=== PATIENT | male | born 1970 | race Hispanic/Latino ===

== ENCOUNTER 2018-07-10 04:52 | Emergency (ER) | payer MEDICAID ==
[2018-07-10] MEDS ORDERED: Albuterol-Ipratrop 3 mg / 0.5 (3 ml) UD INH STA (05:32)
[2018-07-10] MEDS ORDERED: Albuterol-Ipratrop 3 mg / 0.5 (3 ml) UD ONE ×2 (05:46→05:58)
[2018-07-10 05:59] LABS: BASO % 0.7 % (0.0-2.0); EOS # 0.1 K/uL (0.0-0.7); EOS % 1.2 % (0.0-4.0); HEMOGLOBIN 13.6 g/dL (12.0-18.0); LYMPH # 1.6 K/uL (1.0-4.3); LYMPH % 25.3 % (20.0-40.0); MEAN CELL VOLUME 85.4 fl (80.0-94.0); MEAN CORPUSCULAR HEMOGLOBIN 29.5 pg (27.0-31.0); MEAN CORPUSCULAR HGB CONC 34.5 g/dL (33.0-37.0); MEAN PLATELET VOLUME 7.7 fl (7.2-11.7); MONO # 0.4 K/uL (0.0-0.8); MONO % 6.4 % (0.0-10.0); NEUT # 4.3 K/uL (1.8-7.0); NEUT % 66.4 % (50.0-75.0); RBC 4.61 Mil/uL (4.40-5.90); RED CELL DISTRIBUTION WIDTH 13.5 % (11.5-14.5); WHITE BLOOD COUNT 6.5 K/uL (4.8-10.8)
[2018-07-10 06:03] VITALS: RESP 18; O2SAT 98
[2018-07-10 06:04] LABS: INR 0.9; PROTHROMBIN TIME 10.5 Seconds (9.8-13.1)
[2018-07-10 06:14] LABS: ALB/GLOB RATIO 1.3 (1.0-2.1); ALBUMIN 4.3 g/dL (3.5-5.0); ALT/SGPT 40 U/L (21-72); AST/SGOT 32 U/L (17-59); BLOOD UREA NITROGEN 19 mg/dl (9-20); CALCIUM 10.1 mg/dL (8.4-10.2); GFR NON-AFRICAN AMERICAN > 60; PARTIAL THROMBOPLASTIN TIME 35.1 Seconds (25.6-37.1)
--- NOTE | 2018-07-10 06:15 | ED PDOC ---
HPI: Back Time Seen by Provider: 07/10/18 05:14 Chief Complaint (Nursing): Anxiety Chief Complaint (Provider): Shortness of Breath History Per: Patient History/Exam Limitations: no limitations Additional Complaint(s): 47 y/o male with history of chronic back pain, presents to the ED complaining of shortness of breath prior to arrival. Patient reports he was driving and felt short of breath. He states that symptoms were similar to an episode many years ago and at that time he was diagnosed with anxiety. Patient notes that there is no real reason for him to feel particularly anxious. Patient works as a long distance truck driver flatbed and smokes a pack of cigarettes daily. Denies any chest pain. Past Medical History Reviewed: Historical Data, Nursing Documentation, Vital Signs Vital Signs: Last Vital Signs Temp 98.2 F 07/10/18 06:02 Pulse 94 H 07/10/18 06:02 Resp 18 07/10/18 06:02 BP 126/71 07/10/18 06:02 Pulse Ox 98 07/10/18 06:02 - Medical History PMH: Chronic Pain (Back pain) - Surgical History Surgical History: No Surg Hx - Family History Family History: States: Unknown Family Hx - Social History Current smoker - smoking cessation education provided: Yes SMOKER/PACKS PER DAY:: 1 - Allergies Allergies/Adverse Reactions: Allergies Allergy/AdvReac Type Severity Reaction Status Date / Time Penicillins Allergy RASH Verified 07/10/18 05:07 tramadol Allergy RASH Verified 07/10/18 05:07 Review of Systems ROS Statement: Except As Marked, All Systems Reviewed And Found Negative Cardiovascular: Negative for: Chest Pain Respiratory: Positive for: Shortness of Breath Psych: Positive for: Anxiety Physical Exam - Reviewed Nursing Documentation Reviewed: Yes Vital Signs Reviewed: Yes - Physical Exam Appears: Positive for: Well, Non-toxic, No Acute Distress Head Exam: Positive for: ATRAUMATIC, NORMAL INSPECTION, NORMOCEPHALIC Skin: Positive for: Normal Color, Warm, DRY Eye Exam: Positive for: EOMI, Normal appearance, PERRL ENT: Positive for: Normal ENT Inspection Neck: Positive for: Normal, Painless ROM Cardiovascular/Chest: Positive for: Regular Rate, Rhythm, Tachycardia. Negative for: Murmur Respiratory: Positive for: Normal Breath Sounds. Negative for: Respiratory Distress Gastrointestinal/Abdominal: Positive for: Normal Exam, Soft. Negative for: Tenderness Back: Positive for: Normal Inspection Extremity: Positive for: Normal ROM. Negative for: Pedal Edema, Deformity Neurologic/Psych: Positive for: Alert, Oriented. Negative for: Motor/Sensory Deficits - Laboratory Results Result Diagrams: 07/10/18 05:57 07/10/18 05:57 Lab Results: PT 10.5 Seconds (9.8-13.1) 07/10/18 05:57 INR 0.9 07/10/18 05:57 - ECG O2 Sat by Pulse Oximetry: 98 (RA) Pulse Ox Interpretation: Normal Medical Decision Making Medical Decision Making: Time: 05:31 Initial Impression: 47 y/o with shorntess of breath Initial Plan: * Labs * CT Chest Angio * Duoneb 07:00 Patient care endorsed to Dr. Weber pending CT, labs, and reevaluation. ----- Scribe Attestation: Documented by Neftaly Pavon acting as a scribe for Dread Nichols MD. Provider Scribe Attestation: All medical record entries made by the Scribe were at my direction and personally dictated by me. I have reviewed the chart and agree that the record accurately reflects my personal performance of the history, physical exam, medical decision making, and the department course for this patient. I have also personally directed, reviewed, and agree with the discharge instructions and disposition. Disposition - Clinical Impression Clinical Impression: Dyspnea - Disposition Disposition: Transfer of Care Disposition Time: 07:00 Condition: FAIR Forms: [employer] ([place]) Patient Signed Over To: Abel Weber
[2018-07-10] MEDS ORDERED: Sodium Chloride 0.9% 50 ML IV ONE (06:27)
[2018-07-10] MEDS ORDERED: Iodixanol 320 MG/ML 100 ML BOTTLE IV ONE (06:27)
[2018-07-10 07:27] VITALS: BP 141/65
[2018-07-10 07:28] VITALS: PULSE 92; TEMP 98
--- NOTE | 2018-07-10 07:52 | ED PDOC ---
- Laboratory Results Result Diagrams: 07/10/18 05:57 07/10/18 05:57 Lab Results: PT 10.5 Seconds (9.8-13.1) 07/10/18 05:57 INR 0.9 07/10/18 05:57 APTT 35.1 Seconds (25.6-37.1) 07/10/18 05:57 Troponin I < 0.0120 ng/mL (0.00-0.120) 07/10/18 05:57 Total Bilirubin 0.3 mg/dl (0.2-1.3) 07/10/18 05:57 AST 32 U/L (17-59) 07/10/18 05:57 ALT 40 U/L (21-72) 07/10/18 05:57 Alkaline Phosphatase 72 U/L (38-126) 07/10/18 05:57 Total Protein 7.6 G/DL (6.3-8.2) 07/10/18 05:57 Albumin 4.3 g/dL (3.5-5.0) 07/10/18 05:57 Globulin 3.3 gm/dL (2.2-3.9) 07/10/18 05:57 Albumin/Globulin Ratio 1.3 (1.0-2.1) 07/10/18 05:57 - ECG O2 Sat by Pulse Oximetry: 98 - Progress Re-evaluation Time: 07:50 Condition: Improved (No SOB or chest pain) Disposition - Clinical Impression Clinical Impression: Dyspnea, Low back pain, COPD with acute exacerbation - POA Present On Arrival: None - Disposition Referrals: [facility] [Outside] Disposition: Routine/Home Disposition Time: 07:51 Condition: FAIR Prescriptions: Albuterol HFA [Ventolin HFA 90 mcg/actuation (8 g)] 2 puff IH Q4H #1 puff Cyclobenzaprine [Cyclobenzaprine HCl] 10 mg PO TID #12 tab Naproxen [Naprosyn] 500 mg PO Q12H #20 tab Instructions: Low Back Pain in Adults, Chronic Obstructive Pulmonary Disease (COPD), Including Emphysema Forms: [employer] ([place])
--- NOTE | 2018-07-10 11:10 | CT ---
Date of service: 07/10/2018 PROCEDURE: CT Chest with contrast (Pulmonary Angiogram) HISTORY: chest pain r/o PE COMPARISON: None available. TECHNIQUE: Axial computed tomography images were obtained of the chest in the pulmonary arterial phase of enhancement. Coronal and sagittal reformatted images were created and reviewed. Intravenous contrast dose: Visipaque 320, 99 cc Radiation dose: Total exam DLP = 339.83 mGy-cm. This CT exam was performed using one or more of the following dose reduction techniques: Automated exposure control, adjustment of the mA and/or kV according to patient size, and/or use of iterative reconstruction technique. FINDINGS: PULMONARY ARTERIES: Unremarkable. No pulmonary embolism. AORTA: No acute findings. No thoracic aortic aneurysm. No aortic atherosclerotic calcification or mural plaque present. LUNGS: Unremarkable. No nodule, mass or pulmonary consolidation. PLEURAL SPACES: Unremarkable. No effusion or pneumothorax. HEART: Unremarkable. No cardiomegaly. No significant pericardial effusion. LYMPH NODES: No lymphadenopathy. BONES, CHEST WALL: Unremarkable. No fracture or destructive lesion OTHER FINDINGS: Unremarkable. IMPRESSION: Unremarkable CT pulmonary angiogram. No pulmonary embolus. Concordant preliminary report from [facility], 07/10/2018 7:08 a.m..
--- NOTE | 2018-07-19 11:06 | CARD ---
APPROVED REPORT Date of service: 07/10/2018 EKG Measurement Heart [id number] <Conclusion> Normal sinus rhythm Normal Electrocardiogram
== END 2018-07-10 08:18 | disposition home or self-care (01) ==
LOC: H.ER 04:52
DX: J44.1 Chronic obstructive pulmonary disease with (acute) exacerbation (principal); G89.29 Other chronic pain; F41.9 Anxiety disorder, unspecified; Z88.0 Allergy status to penicillin; Z88.8 Allergy status to other drugs, medicaments and biological substances; F17.210 Nicotine dependence, cigarettes, uncomplicated; R00.0 Tachycardia, unspecified
CPT/HCPCS: 71275; 80053; 84484; 85025; 85610; 85730; 93005; 94150; 94640; 99285; J1885; Q9967